=== PATIENT | female | born 1990 | race American Indian/Alaskan Native ===

== ENCOUNTER 2019-11-30 05:15 | Outpatient (CLI) | payer OTHER, BC ==
[2019-11-30] MEDS ORDERED: LACTATED RINGERS 1,000 ML IV ONE (05:44)
[2019-11-30] MEDS ORDERED: LACTATED RINGERS 1000 ML IV SOLN ONE (05:44)
[2019-11-30 05:59] VITALS: BP 141/90
[2019-11-30 06:48] LABS: Bilirubin,Urine NEG (Negative); Blood,Urine NEG (Negative); Color,Urine Straw (Yellow); Mucus,Urine FEW /HPF; Urobilinogen,Urine < 2.0 mg/dL (<2.0)
== END 2019-11-30 10:04 | disposition home or self-care (01) ==
LOC: TRG 05:15
PROVIDERS: ATTEND Obstetrics & Gynecology
DX: O62.9 Abnormality of forces of labor, unspecified (principal); O24.313 Unspecified pre-existing diabetes mellitus in pregnancy, third trimester; E11.9 Type 2 diabetes mellitus without complications; O16.3 Unspecified maternal hypertension, third trimester; Z3A.33 33 weeks gestation of pregnancy
CPT/HCPCS: 81001; 96360; J7120

== ENCOUNTER 2019-11-30 22:48 | Outpatient (CLI) | payer OTHER, BC ==
[2019-11-30] MEDS ORDERED: LACTATED RINGERS 1,000 ML IV ONE (23:58)
[2019-12-01 01:06] LABS: Bacteria,Urine 1+ /HPF (Negative); Bilirubin,Urine NEG (Negative); Blood,Urine MOD (Negative); Color,Urine Yellow (Yellow); Protein,Urine <15 mg/dL mg/dL (Negative); Urobilinogen,Urine < 2.0 mg/dL (<2.0)
--- NOTE | 2019-12-01 03:03 | Ultrasound Report ---
Examination: Ultrasound Obstetrical Limited, 12/01/2019 INDICATION: Evaluate placental for placental abruption. Evaluate DUSTIN. COMPARISON: No prior studies are available for comparison. FINDINGS: There is a single living intrauterine with the head in the cephalic position. Amniotic flui d index measures 29 cm, which is within normal limits. The heart rate is 138 beats per minute. The placental is fundal in location and grade 2. Impression: 1. No sonographic evidence of focal placental abnormality. 2. Additional findings as above. Signer Name: Samina Hutchinson MD Signed: 12/01/2019 2:58 AM Workstation Name: [id number]
[2019-12-01 03:41] VITALS: BP 137/85
[2019-12-01 04:05] LABS: Amphetamine Screen,Urine PRESUMPTIVE NEGATIVE; Benzodiazepines Screen,Urine PRESUMPTIVE NEGATIVE; Cannabinoid Screen,Urine PRESUMPTIVE NEGATIVE; Cocaine Screen,Urine PRESUMPTIVE NEGATIVE; Methadone Screen,Urine PRESUMPTIVE NEGATIVE; Opiate Screen,Urine PRESUMPTIVE NEGATIVE
== END 2019-12-01 05:10 | disposition home or self-care (01) ==
LOC: TRG 22:48
PROVIDERS: ATTEND Obstetrics & Gynecology
DX: O26.853 Spotting complicating pregnancy, third trimester (principal); O62.9 Abnormality of forces of labor, unspecified; Z3A.33 33 weeks gestation of pregnancy
CPT/HCPCS: 76815; 80307; 81001; J0690; J7120